=== PATIENT | male | born 1955 | race Caucasian/White ===

== ENCOUNTER 2021-02-10 10:10 | Day surgery (SDC) | payer MEDICARE, BC ==
[~2021-02-10] VITALS: Ht 185.4 cm; Wt 102.3 kg
[2021-02-10 10:20] VITALS: BP 146/92
[2021-02-10] MEDS ORDERED: fentaNYL/PF 50MCG/1 ML 2ML syringe ONE (10:27)
[2021-02-10] MEDS ORDERED: LIDOcaine Viscous 15ml cup ONE (10:27)
[2021-02-10] MEDS ORDERED: MIDAZolam 1 MG/ML 5ML VIAL ONE (10:27)
[2021-02-10 10:47] VITALS: BP 124/79
[2021-02-10 10:57] VITALS: BP 129/74
[2021-02-10 11:07] VITALS: BP 130/78
[2021-02-10 11:17] VITALS: BP 118/77
== END 2021-02-10 11:35 | disposition home or self-care (01) ==
LOC: GI LAB 10:10
PROVIDERS: ATTEND Internal Medicine Gastroenterology
DX: R13.10 Dysphagia, unspecified (principal); K21.00 Gastro-esophageal reflux disease with esophagitis, without bleeding; K29.70 Gastritis, unspecified, without bleeding
CPT/HCPCS: 43239; G0500; J2250; J3010; J7040; Z7512; 88305; 88342; 99152; 99153; A4620

== ENCOUNTER 2023-02-16 10:29 | Outpatient (CLI) | payer MEDICARE, BC ==
[~2023-02-16 10:29] MED LIST: ASPI-1397 PO; ATOR40TA72 PO; METO-395 PO; TEST75GE TOP; TICA90TA2 PO
== END 2023-02-16 23:59 | disposition home or self-care (01) ==
LOC: VAS 10:29
PROVIDERS: ATTEND Internal Medicine Cardiovascular Disease
DX: I70.213 Atherosclerosis of native arteries of extremities with intermittent claudication, bilateral legs (principal)
CPT/HCPCS: 93922; 93925

== ENCOUNTER 2023-02-19 08:34 | Outpatient (CLI) | payer MEDICARE, BC ==
[2023-02-19] MEDS ORDERED: iohexol 350MG/ML 100ml bottle IV ONE (08:48)
[2023-02-19] MEDS ORDERED: iohexol 350 MG/ML 50ML vial IV ONE (08:48)
== END 2023-02-19 23:59 | disposition home or self-care (01) ==
LOC: RAD 08:34
PROVIDERS: ATTEND Surgery
DX: I73.9 Peripheral vascular disease, unspecified (principal); K76.89 Other specified diseases of liver; I70.8 Atherosclerosis of other arteries
CPT/HCPCS: 75635; J3490; Q9967

== ENCOUNTER 2023-05-20 08:51 | Emergency (ER) | payer MEDICARE, BC ==
[~2023-05-20] VITALS: Ht 185.4 cm; Wt 97.7 kg
[2023-05-20 08:56] VITALS: TEMP 99
[2023-05-20 09:45] LABS: BASOPHILS % (AUTO) 0 % (0-1); EOSINOPHILS % (AUTO) 0.3 % (0-6); HEMATOCRIT 51.3 % (42.0-52.0); HEMOGLOBIN 17.4 g/dl (14.0-17.9); LYMPHOCYTES # (AUTO) 0.3 X10'3 (1.1-4.8); LYMPHOCYTES % (AUTO) 2.4 % (21-51); MEAN CORPUSCULAR HEMOGLOBIN 32.2 PG (27.0-31.0); MEAN CORPUSCULAR VOLUME 94.8 FL (78-98); MEAN PLATELET VOLUME 7.7 FL (7.4-10.4); MONOCYTES # (AUTO) 0.5 X10'3 (0-0.9); MONOCYTES % (AUTO) 4.8 % (2-12); NEUTROPHILS # (AUTO) 9.9 X10'3 (1.8-7.7); NEUTROPHILS % (AUTO) 92.5 % (42-75); PLATELET COUNT 194 X10'3 (140-440); RED BLOOD COUNT 5.41 X10'6 (4.70-6.10); RED CELL DISTRIBUTION WIDTH 13.3 % (11.5-14.5); WHITE BLOOD COUNT 10.7 X10'3 (4.5-11.0)
[2023-05-20 10:00] LABS: ALANINE AMINOTRANSFERASE 39 U/L (12-78); ALBUMIN 3.6 G/DL (3.4-5.0); ALBUMIN/GLOBULIN RATIO 1.1 (1.1-1.5); ALKALINE PHOSPHATASE 120 IU/L (46-116); ANION GAP 5 (8-16); ASPARTATE AMINO TRANSFERASE 34 U/L (10-37); BILIRUBIN,TOTAL 1.3 MG/DL (0.1-1.0); BLOOD UREA NITROGEN 28 MG/DL (7-18); BUN/CREATININE RATIO 19.6 (10.0-20.0); CALCIUM 8.6 MG/DL (8.5-10.1); CHLORIDE 102 MMOL/L (99-107); CREATININE 1.43 MG/DL (0.60-1.10); GLUCOSE 127 MG/DL (70-104); POTASSIUM 4.3 MMOL/L (3.5-5.1); SODIUM 136 MMOL/L (135-145); TOTAL CARBON DIOXIDE 28.9 MMOL/L (24-32); eCRCL 55 ML/MIN; eGFR 49 ML/MIN
[2023-05-20 10:03] LABS: PRO BRAIN NATRIURETIC PEPTIDE 154 PG/ML (0-125)
--- NOTE | 2023-05-20 11:06 | NUR ---
PT RESTING QUIETLY IN RM 3 WTG RESULTS
[2023-05-20 11:37] VITALS: BP 122/71; PULSE 89; RESP 16; O2SAT 18
== END 2023-05-20 11:39 | disposition home or self-care (01) ==
LOC: ER 08:52
DX: R07.89 Other chest pain (principal)
CPT/HCPCS: 71045; 80053; 83880; 84484; 85025; 93005; 99285